=== PATIENT | male | born 1990 | race American Indian/Alaskan Native ===

== ENCOUNTER 2017-08-25 07:45 | Emergency (ER) | payer SELFPAY ==
[2017-08-25 08:04] VITALS: TEMP 98.1
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
[2017-08-25 08:52] VITALS: BP 140/80; PULSE 80; RESP 18; O2SAT 98
== END 2017-08-25 08:53 | disposition home or self-care (01) ==
LOC: H.ER 07:45
DX: S05.12XA Contusion of eyeball and orbital tissues, left eye, initial encounter (principal); Y04.0XXA Assault by unarmed brawl or fight, initial encounter; Y92.89 Other specified places as the place of occurrence of the external cause; Z88.0 Allergy status to penicillin